=== PATIENT | female | born 1975 | race Caucasian/White ===

== ENCOUNTER 2017-01-27 16:22 | Emergency (ER) | payer MEDICAID, OTHER ==
[~2017-01-27] VITALS: Ht 160 cm; Wt 70.5 kg
[2017-01-27 16:27] VITALS: Ht 160 cm; Wt 70.5 kg
--- NOTE | 2017-01-27 18:22 | ERD ---
ER Documentation Chief Complaint Chief Complaint right buttocks pain radiating down leg x4 days HPI The patient is a 41-year-old female, presenting to the ER because of right lower back pain radiating down to her right lower extremity intermittently for the last 4 days, denies fecal/urinary incontinence, denies fever, chills, neck pain, chest pain, abdominal pain, vomiting, dysuria, diarrhea. She does not smoke, denies any history of intravenous drug abuse, denies drinking Past medical/surgical history: None ROS All systems reviewed and are negative except as per history of present illness. Medications Home Meds Active Scripts Carisoprodol* (Soma*) 350 Mg Tablet, 350 MG PO TID Y for MUSCLE SPASMS, #15 TAB Prov:CHUCK ESPINOSA MD 01/27/17 Tramadol HCl (Tramadol HCl) 50 Mg Tablet, 50 MG PO Q6 Y for PAIN, #20 TAB Prov:CHUCK ESPINOSA MD 01/27/17 Physical Exam Vitals Vital Signs Date Time Temp Pulse Resp B/P Pulse Ox O2 Delivery O2 Flow Rate FiO2 01/27/17 16:27 98.8 99 18 120/81 100 Physical Exam Const: No acute distress. Head: Atraumatic. Eyes: Normal Conjunctiva. ENT: Normal External Ears, Nose and Mouth. Neck: Full range of motion. No meningismus. Resp: Clear to auscultation bilaterally. Cardio: Regular rate and rhythm. Abd: Soft, non distended, normal bowel sounds, non tender. Skin: No petechiae or rashes. Back: No midline or flank tenderness. Ext: No cyanosis, or edema.Positive for right lower extremity straight leg raising test Neur: Awake and alert. No focal deficit Psych: Normal Mood and Affect. Results 24 hrs Current Medications Medications (Trade) Dose Ordered Sig/Kayla Route PRN Reason Start Time Stop Time Status Last Admin Dose Admin Ketorolac Tromethamine (Toradol) 60 mg ONCE STAT IM 01/27/17 18:35 01/27/17 18:37 DC 01/27/17 18:50 Procedures/MDM MEDICAL MAKING DECISION: The patient is a 41-year-old female, presenting with acute low back pain with right sciatica. She was treated with Toradol 60 mg IM for pain with good response The differential diagnoses considered include but are not limited to caudal equina syndrome, spinal abscess, DJD, diskitis, lumbar radiculopathy. Departure Diagnosis: Primary Impression: Back pain with right-sided sciatica Condition: Good Comments She was discharged with [facility] and Dnonie I discussed the findings with the patient. I advised the patient to follow-up with the primary physician in about 1-2 days, sooner if needed and return if any concern. She was advised that if the pain is persistent, she would need an MRI for further evaluation CHUCK ESPINOSA MD Jan 27, 2017 18:22
[2017-01-27] MEDS ORDERED: KETOROLAC 60 MG INJ IM STA (18:35)
[2017-01-27] MEDS ORDERED: CARI350T PO (18:37)
[2017-01-27] MEDS ORDERED: TRAM50TA2 PO (18:37)
== END 2017-01-27 19:14 | disposition home or self-care (01) ==
LOC: FTE 16:22
DX: M54.41 Lumbago with sciatica, right side (principal)
CPT/HCPCS: 96372; J1885; Z7502